=== PATIENT | female | born 1960 | race Caucasian/White ===

== ENCOUNTER 2017-05-05 11:21 | Emergency (ER) | payer BC, OTHER ==
[~2017-05-05] VITALS: Ht 172.7 cm; Wt 80.0 kg
[~2017-05-05 11:21] MED LIST: ALBU1.25 NEB; ALPR2TAB2 PO; AZIT500T5 PO; CA C1TAB26 PO; CALC1TAB84 PO; CETI10CA PO; CETI10TA24 PO; CHOL500045 PO; CYAN25009 PO; ENZY1TAB2 PO; HYDR1TAB12 PO; LACT1CAP37 PO; METH4TAB2 PO; METH500T97 PO; METH750T2 PO; METHYLPREDNISONE IM; METR500T PO; NEOM500T PO; Nebulizer INH; OMEP1CAP PO; OXYC-302 PO; STEROID INHALER; SULF-169 PO; SULF1TAB24 PO; TRAZ100T15 PO; TRAZ150T62 PO; ZOLP10TA PO; [UNRECOGNIZED DRUG - CODE] INJ
[2017-05-05] MEDS ORDERED: DIAZEPAM 5 MG TABLET PO ONE (12:00)
[2017-05-05] MEDS ORDERED: DIAZEPAM 5 MG TABLET ONE (12:47)
[2017-05-05 15:42] VITALS: BP 135/78
== END 2017-05-05 15:44 | disposition home or self-care (01) ==
LOC: ED 14:45
DX: S16.1XXA Strain of muscle, fascia and tendon at neck level, initial encounter (principal); V49.59XA Passenger injured in collision with other motor vehicles in traffic accident, initial encounter; Y93.89 Activity, other specified; Y99.8 Other external cause status; Y92.410 Unspecified street and highway as the place of occurrence of the external cause
CPT/HCPCS: 70450; 72125; 99284

== ENCOUNTER 2018-02-23 18:03 | Emergency (ER) | payer OTHER ==
[~2018-02-23] VITALS: Ht 167.6 cm; Wt 90.0 kg
[~2018-02-23 18:03] MED LIST changes: +TRAZ-137 PO; -TRAZ100T15 PO
[2018-02-23] MEDS ORDERED: EPINEPHRINE 1 MG/ML, 1ML ONE ×2 (18:33→18:52)
[2018-02-23] MEDS ORDERED: FAMOTIDINE 20 MG/2 ML ONE (18:33)
[2018-02-23] MEDS ORDERED: RACEPINEPHRINE INH 2.25%, 0.5ML ONE ×2 (18:33→18:53)
[2018-02-23] MEDS ORDERED: methylPREDNISolone SOD SUCC 125 MG/2 ML ONE (18:33)
[2018-02-23] MEDS ORDERED: EPINEPHRINE 1 MG/ML, 1ML IM ONE ×2 (19:05→19:30)
[2018-02-23] MEDS ORDERED: CBD OIL (19:21)
[2018-02-23] MEDS ORDERED: ALPR1TAB2 PO (19:21)
[2018-02-23] MEDS ORDERED: TIZA4TAB PO (19:21)
[2018-02-23] MEDS ORDERED: GABA600T2 PO (19:21)
[2018-02-23] MEDS ORDERED: PRED5TAB PO (19:22)
[2018-02-23] MEDS ORDERED: methylPREDNISolone SOD SUCC 125 MG/2 ML IVPush ONE (19:30)
[2018-02-23] MEDS ORDERED: FAMOTIDINE 20 MG/2 ML IVPush ONE (19:30)
[2018-02-23 20:52] VITALS: BP 171/77
== END 2018-02-23 21:06 | disposition home or self-care (01) ==
LOC: ED 20:36
DX: T63.441A Toxic effect of venom of bees, accidental (unintentional), initial encounter (principal); J45.909 Unspecified asthma, uncomplicated; Y93.89 Activity, other specified; Y92.89 Other specified places as the place of occurrence of the external cause; Y99.8 Other external cause status
CPT/HCPCS: 94640; 96372; 96374; 96375; 99291; J0171; J2930; S0028

== ENCOUNTER 2018-09-26 21:19 | Emergency (ER) | payer OTHER ==
[~2018-09-26] VITALS: Ht 152.4 cm; Wt 95.8 kg
[~2018-09-26 21:19] MED LIST changes: +ALPR1TAB2 PO; +CBD OIL; +GABA600T7 PO; -HYDR1TAB12 PO; +HYDR1TAB13 PO; +PRED5TAB PO; +TIZA4TAB PO
[2018-09-26] MEDS ORDERED: FAMOTIDINE 20 MG/2 ML ONE (21:21)
[2018-09-26] MEDS ORDERED: DEXAMETHASONE 4 MG/ML, 5ML ONE (21:21)
[2018-09-26] MEDS ORDERED: RACEPINEPHRINE INH 2.25%, 0.5ML ONE (21:22)
[2018-09-26] MEDS ORDERED: LORazepam 2 MG/ML, 1ML ONE (21:25)
[2018-09-26] MEDS ORDERED: EPINEPHRINE 1 MG/ML, 1ML ONE ×2 (21:29→23:26)
[2018-09-26] MEDS ORDERED: SODIUM CHLORIDE FLUSH 10ML SYR IVF ONE (21:30)
[2018-09-26] MEDS ORDERED: LORazepam 2 MG/ML, 1ML IVPush ONE (21:30)
[2018-09-26] MEDS ORDERED: DEXAMETHASONE 4 MG/ML, 1ML IVPush ONE (21:30)
[2018-09-26] MEDS ORDERED: SODIUM CHLORIDE 0.9% 1,000ML IVBOLUS ONE (21:30)
[2018-09-26] MEDS ORDERED: EPINEPHRINE 1 MG/ML, 1ML IM ONE (21:30)
[2018-09-26] MEDS ORDERED: LIDOCAINE-MPF 1%, 5ML INFIL ONE (21:30)
[2018-09-26] MEDS ORDERED: FAMOTIDINE 20 MG/2 ML IVPush ONE (21:30)
--- NOTE | 2018-09-26 21:30 | NUR ---
BIB [facility] FOR WASP STING TO RIGHT FOOT. PT SEVERLY ALLERGIC TO WASPS. PT MEDICATED SELF AT HOME WITH BENADRYL AND EPI PEN. PT GIVING ALBUTEROL TREATMENT INROUTE. PT MEDICATED WITH ATIVAN, DECADRON, PEPCID, AND EPI UPON ARRIVAL TO ER. PT GIVEN ANOTHER ALBUTEROL TREATMENT FOLLOWED BY RACEMIC EPI TREATMENT.
--- NOTE | 2018-09-26 21:53 | NUR ---
PT RESTING WITH HOB ELEVATED ON HUMIDIFIED AEROSOL MASK. PT STATES "SHE FEELS BETTER, READY TO GO HOME." PHYSICIAN UPDATED AND AT BEDSIDE UPDATING PATIENT.
--- NOTE | 2018-09-26 22:12 | NUR ---
PT RESTING WITH NO OXYGEN ON. NO DISTRESS NOTED. AT BEDSIDE.
--- NOTE | 2018-09-26 22:20 | NUR ---
OXYGEN MASK REAPPLIED AT [facility]LITERS. PT STATES "SHE IS HAVING TIGHTNESS IN CHEST AGAIN."
[2018-09-26] MEDS ORDERED: ALBUTEROL SULFATE 2.5 MG/3 ML NPPB ONE ×2 (22:30→23:30)
[2018-09-26] MEDS ORDERED: ALBUTEROL SULFATE 2.5 MG/3 ML ONE ×2 (22:33→23:29)
--- NOTE | 2018-09-26 22:39 | NUR ---
PT RECIEVING BREATHING TREATMENT BY RESPIRATORY.
--- NOTE | 2018-09-26 22:58 | NUR ---
PT AGREES TO FEELING BETTER AFTER BREATHING TREATMENT. WILL CONTINUE TO MONITOR.
[2018-09-26] MEDS ORDERED: EPINEPHRINE 1 MG/ML, 1ML SQ ONE (23:00)
--- NOTE | 2018-09-26 23:24 | NUR ---
PT HAVING CHEST TIGHTNESS AGAIN. SPO2 88% ON ROOM AIR, APPLIED NASAL CANNULA 4L. UPDATED PHYSICIAN.
--- NOTE | 2018-09-26 23:35 | NUR ---
PT MEDICATED PER [facility] WITH 0.3MG EPINEPHRINE IM. PT ALSO RECIEVING ANOTHER BREATHING TREATMENT AT THIS TIME.
--- NOTE | 2018-09-27 00:43 | NUR ---
PT AMBULATED TO BATHROOM. TOLERATED WELL. PT REMAINS ON NASAL CANNULA AT 2L NOW. SPO2 96%. CONTINUE TO MONITOR.
--- NOTE | 2018-09-27 00:56 | NUR ---
BREAK RN: PT RESTING ON GURNEY, NADN, RESPIRATIONS EVEN AND UNLABORED, SPO2 95% ON 2L N/C, MONITORS IN PLACE, CALL LIGHT WITHIN REACH.
[2018-09-27] MEDS ORDERED: ALBUTEROL SULFATE 2.5 MG/3 ML NPPB PRN (01:30)
--- NOTE | 2018-09-27 02:18 | NUR ---
PHYSICIAN AT BEDSIDE, UPDATED ON POC. PT TO BE ADMITTED FOR OBSERVATION.
--- NOTE | 2018-09-27 02:27 | NUR ---
TP: called jhoana at [facility], pt accepted for transfer. waiting for hospitalist dr victor to get report
--- NOTE | 2018-09-27 03:24 | NUR ---
ATTEMPTED TO CALL REPORT TO [place] AT [facility]. NURSE ASKED TO CALL BACK IN 10 MINUTES.
--- NOTE | 2018-09-27 03:45 | NUR ---
REPORT GIVEN TO [place] AT [facility]. ALL QUESTIONS ANSWERED.
[2018-09-27 03:54] VITALS: BP 132/60
== END 2018-09-27 06:05 | disposition short-term general hospital (02) ==
LOC: ED 23:59
DX: T78.2XXA Anaphylactic shock, unspecified, initial encounter (principal); T63.461A Toxic effect of venom of wasps, accidental (unintentional), initial encounter; T78.40XA Allergy, unspecified, initial encounter; J98.01 Acute bronchospasm; X58.XXXA Exposure to other specified factors, initial encounter
CPT/HCPCS: 93005; 94640; 96372; 96374; 96375; 99291; J0171; J1100; J2060; J3490; J7030; J7613